=== PATIENT | male | born 1985 | race Caucasian/White ===

== ENCOUNTER 2018-10-22 19:46 | Emergency (ER) | payer SELFPAY ==
[2018-10-22 20:01] VITALS: BP 125/78
--- NOTE | 2018-10-22 20:23 | ER Document Report ---
ED Medical Screen (RME) - General Chief Complaint: Abdominal Pain Stated Complaint: ABDOMINAL PAIN Time Seen by Provider: 10/22/18 20:20 Mode of Arrival: Ambulatory Information source: Patient TRAVEL OUTSIDE OF THE [place] IN LAST 30 DAYS: No - HPI Patient complains to provider of: drug detox Onset: Other - pt. states he is detoxing from po dilaudid (last dose 2 days ago) and wants help to do this. No other substances involved - Related Data Allergies/Adverse Reactions: acetaminophen [From Tylenol] Adverse Reaction (Verified 10/22/18 20:21) Past Medical History - Social History Frequency of alcohol use: None Drug Abuse: Cocaine, Prescription drugs Pulmonary Medical History: Reports: Hx Asthma Neurological Medical History: Reports: Hx Seizures Renal/ Medical History: Denies: Hx Peritoneal Dialysis Physical Exam - Vital signs Vitals: Temp Pulse Resp BP Pulse Ox 98.1 F 131 H 16 125/78 97 10/22/18 20:00 10/22/18 20:00 10/22/18 20:00 10/22/18 20:00 10/22/18 20:00 Course - Vital Signs Vital signs: Temp Pulse Resp BP Pulse Ox 98.1 F 131 H 16 125/78 97 10/22/18 20:00 10/22/18 20:00 10/22/18 20:00 10/22/18 20:00 10/22/18 20:00
== END 2018-10-22 22:30 | disposition left against medical advice (07) ==
LOC: ER 19:46
DX: R10.9 Unspecified abdominal pain (principal); J45.909 Unspecified asthma, uncomplicated; F14.10 Cocaine abuse, uncomplicated; Z53.20 Procedure and treatment not carried out because of patient's decision for unspecified reasons
CPT/HCPCS: 99281